=== PATIENT | female | born 1985 | race African-American/Black ===

== ENCOUNTER 2018-07-31 14:35 | Observation (INO) | payer MEDICAID ==
[~2018-07-31 14:35] MED LIST: PREN-96 PO
== END 2018-07-31 15:46 | disposition home or self-care (01) | DRG 566 ==
LOC: LDRP 14:35
PROVIDERS: ADMIT Obstetrics & Gynecology; ATTEND Obstetrics & Gynecology
DX: O36.8130 Decreased fetal movements, third trimester, not applicable or unspecified (principal); O09.523 Supervision of elderly multigravida, third trimester; Z3A.39 39 weeks gestation of pregnancy
CPT/HCPCS: 59025; 81002; G0378

== ENCOUNTER 2018-10-07 20:37 | Inpatient (IN) | payer MEDICAID ==
[~2018-10-07] VITALS: Ht 165.1 cm; Wt 142.9 kg
[2018-10-07] MEDS ORDERED: LACTATED RINGER'S 1,000 ML IV SCH (21:06)
[2018-10-07] MEDS ORDERED: LACT. RINGERS/OXYTOCIN 20UNITS 1,000 ML IV SCH (21:06)
[2018-10-07] MEDS ORDERED: NALBUPHINE HCL 10 MG/1ml INJECTION IV PRN (21:15)
[2018-10-07] MEDS ORDERED: PHISODERM TOP SOLN 240ML BTL TOP PRN (21:15)
[2018-10-07] MEDS ORDERED: CARBOPROST TROMETHAMINE 250 MCG/1ML VIAL IM PRN (21:15)
[2018-10-07] MEDS ORDERED: METHYLERGONOVINE MALEATE 0.2 MG/ML AMP IM PRN (21:15)
[2018-10-07] MEDS ORDERED: WITCH HAZEL-GLYCERIN PAD TOP PRN (21:15)
[2018-10-07] MEDS ORDERED: LIDOCAINE 2%HCL (LOCAL ANESTH.) INJ 20ML MDV ID ONE (21:15)
[2018-10-07] MEDS ORDERED: DERMOPLAST 60ML BOTTLE TOP PRN (21:15)
[2018-10-07 22:09] LABS: Basophils # (auto) 0 uL; Basophils % (auto) 0.4 % (0.0-2.0); Eosinophils # (auto) 0.1 uL; Hemoglobin 11.2 g/dL (12.2-16.2); Monocytes # (auto) 0.7 uL; Platelet Count (auto) 215 10^3/uL (140-450); White Blood Cell 11.6 10^3/uL (4.4-10.8)
[2018-10-07 22:15] LABS: Urine Bacteria NONE SEEN /hpf (None Seen); Urine Blood 1+ /uL (Negative); Urine Mucus FEW (None Seen); Urine Specific Gravity 1.008 (1.001-1.035); Urine WBC 11 /hpf (0 - 5)
[2018-10-07 22:18] LABS: Hematocrit 34.3 % (36.0-46.0); Lymphocytes # (auto) 2.3 uL; Lymphocytes % (auto) 19.7 % (10.0-50.0); Mean Corpuscular Hemoglobin 27.7 pg (28.0-32.0); Mean Corpuscular Hgb Conc. 32.5 g/dL (32.0-36.0); Mean Corpuscular Volume 85.2 fL (80.0-100.0); Monocytes % (auto) 5.9 % (0.0-12.0); Neutrophils # (auto) 8.5 uL; Red Blood Cells 4.02 10^6/uL (4.0-5.20); Red Cell Distribution Width 14.6 % (11.8-14.3)
[2018-10-07 22:23] LABS: Alanine Aminotransferase 13 U/L (13-56); Albumin 2.5 g/dL (3.4-5.0); Anion Gap 11 (5-15); Aspartate Aminotransferase 10 U/L (15-37); BUN/Creatinine Ratio 13.8; Blood Urea Nitrogen 8 mg/dL (7-18); Calcium 8.3 mg/dL (8.5-10.1); Carbon Dioxide 20 mmol/L (21-32); Chloride 110 mmol/L (98-107); GFR African American 152 mL/min; GFR Non-African American 126 mL/min; Glucose 102 mg/dL (74-106); Potassium 3.8 mmol/L (3.5-5.1); Sodium 141 mmol/L (136-145)
[2018-10-07 22:24] LABS: Alcohol, Urine < 3.0 mg/dL (0-5); Amphetamine Screen, Urine NEGATIVE (NEGATIVE); Barbiturate Scree,Urine NEGATIVE (NEGATIVE); Benzodiazephine Screen, Urine NEGATIVE (NEGATIVE); Cannabinoid Screen, Urine NEGATIVE (NEGATIVE); Cocaine Screen, Urine NEGATIVE (NEGATIVE); Opiate Scree,Urine NEGATIVE (NEGATIVE); Phencyclidine Screen, Urine NEGATIVE (NEGATIVE)
[2018-10-07 22:25] LABS: INR < 0.93 (0.9-1.15); Partial Thromboplastin Time 28.1 sec (23.64-32.05)
[2018-10-07 22:26] LABS: Alkaline Phosphatase 164 U/L (45-117); Bilirubin, Total < 0.1 mg/dL (0.2-1.0); Total Protein 6.7 g/dL (6.4-8.2)
[2018-10-08] MEDS ORDERED: ACCU-CHEK COMFORT CURVE STRIP VI SCH (02:00)
[2018-10-08] MEDS ORDERED: LACTATED RINGER'S 1,000 ML IV ONE (07:33)
[2018-10-08] MEDS ORDERED: NALOXONE HCL 0.4 MG/ML VIAL IV ONE (07:45)
[2018-10-08] MEDS ORDERED: LIDOCAINE HCL 2 %PF INJ 10ML AMP IJ ONE (07:45)
[2018-10-08] MEDS ORDERED: ePHEDrine SULFATE 50 MG/ML AMP IV ONE (07:45)
[2018-10-08] MEDS ORDERED: fentaNYL CITRATE 100 MCG/2 ML VL IV ONE (07:45)
[2018-10-08] MEDS ORDERED: fentaNYL W ROPIVACAINE 150 ML EPI SCH (07:45)
[2018-10-08] MEDS: IBUPROFEN 600 MG TAB PO PRN ×3 (10:47→23:58)
--- NOTE | 2018-10-08 10:51 | NUR ---
Ambulation: Patient OOB with standby assistance by RN. Patient ambulated to bathroom with steady gait. Patient able to void 400 ml without difficulty. [facility]icare teaching provided with returned demonstration by patient. Dermoplast, tucks and clean peripad applied. Clean gown provided and bed linen changed. Patient ambulated back to bed with steady gait and no distress noted.
--- NOTE | 2018-10-08 15:00 | NUR ---
IV removal 20G IV to right hand DC'd with clean sterile technique, catheter fully intact. Pressure dressing applied to site. Patient tolerated well.
[2018-10-08 15:10] VITALS: BP 102/80
[2018-10-08 19:30] VITALS: BP 118/70
[2018-10-08 23:00] VITALS: BP 92/49
[2018-10-09] MEDS ORDERED: ACETAMINOPHEN/CODEINE#3 (300/30mg) TAB PO ONE (01:15)
[2018-10-09] MEDS ORDERED: IBUPROFEN 800 MG TAB PO PRN (01:15)
--- NOTE | 2018-10-09 01:15 | NUR ---
Nasir RN goes to PT room due to noise complaint. PT volume on phone turned up due to neighbor listening to t.v. PT verbalizes she will not turn phone off because she does not want to listen to neighbors t.v. show. PT verbalizes if she can not move to a different room she is going to leave AMA with baby. child development instructor goes to PT room and discusses with PT the noise disruptions. PT verbalizes she will leave AMA with baby if she is not moved to a different room. child development instructor calls dye house hand and gets okay to move PT to room LDRP 1. PT moved to LDRP 1 with all her belongings. There is no sign of distress.
[2018-10-09 03:05] VITALS: BP 123/65
[2018-10-09 04:06] LABS: RPR Non Reactive (Non Reactive)
--- NOTE | 2018-10-09 07:10 | NUR ---
Discharge: Discharge instructions given as ordered. Pt encouraged to follow up with [facility] as instructed. All questions and concerns addressed. Patient verbalized understanding. Medication reconciliation completed and copy given to patient. Patient encouraged to prepare to depart unit.
[2018-10-09 07:30] VITALS: BP 109/71
[2018-10-09 11:05] VITALS: BP 119/64
--- NOTE | 2018-10-09 11:15 | NUR ---
Discharge: Patient taken to vehicle via ambulation refusing wheelchair with all personal belongings, accompanied by staff and family member. No distress noted at time of departure, no adverse changes in status since initial assessment.
== END 2018-10-09 11:15 | disposition home or self-care (01) | DRG 560 ==
LOC: LDRP 20:37 → OBSVTOIN 20:37 → LDRP 10-08 17:28
PROVIDERS: ADMIT Obstetrics & Gynecology; ATTEND Obstetrics & Gynecology
PROC: 10E0XZZ Delivery of Products of Conception, External Approach (ICD-10-PCS; principal; 2018-10-08)
DX: O42.02 Full-term premature rupture of membranes, onset of labor within 24 hours of rupture (principal); O62.3 Precipitate labor; O99.214 Obesity complicating childbirth; Z37.0 Single live birth; Z3A.38 38 weeks gestation of pregnancy; Z86.32 Personal history of gestational diabetes
CPT/HCPCS: 36415; 59025; 59409; 80053; 80307; 81001; 82948; 82962; 84112; 85025; 85610; 85730; 86592; 86850; 86900; 86901; 96361; 96365; 96366; G0378; J2590

== ENCOUNTER → 2020-05-17 | Outpatient (CLI) | payer MEDICAID ==
[2020-05-17 09:16] LABS: Basophils # (auto) 0 10 ^3/uL (0-0.2); Basophils % (auto) 0.6 % (0.0-2.0); Eosinophils # (auto) 0.1 10 ^3/uL (0-0.8); Eosinophils % (auto) 1.5 % (0.0-7.0); Hematocrit 36.9 % (36.0-46.0); Hemoglobin 12.2 g/dL (12.2-16.2); Lymphocytes # (auto) 1.9 10 ^3/uL (0.4-5.4); Lymphocytes % (auto) 21.8 % (10.0-50.0); Mean Corpuscular Hemoglobin 28.9 pg (28.0-32.0); Mean Corpuscular Volume 87.7 fL (80.0-100.0); Monocytes # (auto) 0.5 10 ^3/uL (0-1.3); Monocytes % (auto) 5.7 % (0.0-12.0); Neutrophils % (auto) 70.4 % (37.0-80.0); Platelet Count (auto) 211 10^3/uL (140-450); Red Cell Distribution Width 14.8 % (11.8-14.3); White Blood Cell 8.6 10^3/uL (4.4-10.8)
== END | disposition home or self-care (01) ==
LOC: LAB 09:01
PROVIDERS: ATTEND Obstetrics & Gynecology
DX: O20.0 Threatened abortion (principal); Z3A.01 Less than 8 weeks gestation of pregnancy
CPT/HCPCS: 36415; 84144; 84702; 85025